=== PATIENT | female | born 1985 | race Two or more races ===

== ENCOUNTER 2018-12-17 11:17 | Outpatient (CLI) | payer OTHER ==
[2018-12-17 12:16] LABS: ADD MAN DIFF? NO
[2018-12-17 12:21] LABS: EOSINOPHILS % 0.5 % (0.0-7.0); HEMATOCRIT 28.3 % (37.0-47.0); HEMOGLOBIN 8.4 g/dl (12.0-16.0); LYMPHOCYTES # 1.4 10^3/ul (0.8-2.9); LYMPHOCYTES % 18.3 % (15.0-51.0); MEAN CORPUSCULAR HEMOGLOBIN 21.1 pg (29.0-33.0); MEAN CORPUSCULAR HGB CONC 29.7 g/dl (32.0-37.0); MEAN CORPUSCULAR VOLUME 70.9 fl (82.0-101.0); MEAN PLATELET VOLUME 11.6 fl (7.4-10.4); MONOCYTE # 0.4 10^3/ul (0.3-0.9); MONOCYTES % 5.6 % (0.0-11.0); NEUTROPHIL # 5.7 10^3/ul (1.6-7.5); NEUTROPHILS % 74.9 % (39.0-77.0); PLATELET COUNT 267 10^3/UL (140-415); RED BLOOD COUNT 3.99 10^6/ul (4.20-5.40); RED CELL DISTRIBUTION WIDTH 16.4 % (11.5-14.5)
[2018-12-17 12:21] LABS: WHITE BLOOD COUNT 7.6 10^3/ul (4.8-10.8)
[2018-12-17 13:11] LABS: ADD UMIC YES; UR ASCORBIC ACID NEGATIVE (NEGATIVE); UR BACTERIA FEW /HPF (NONE SEEN); UR BILIRUBIN (Dip) NEGATIVE (NEGATIVE); UR BLOOD (Dip) NEGATIVE (NEGATIVE); UR CLARITY CLOUDY (CLEAR); UR COLOR YELLOW (YELLOW); UR GLUCOSE (Dip) NEGATIVE (NEGATIVE); UR KETONES (Dip) NEGATIVE (NEGATIVE); UR LEUKOCYTE ESTERASE (Dip) TRACE Leu/ul (NEGATIVE); UR MUCUS FEW /HPF (NONE SEEN); UR NITRITE (Dip) NEGATIVE (NEGATIVE); UR RBC 5 /HPF (0-5); UR SQUAMOUS EPITHELIAL CELL MANY /HPF (FEW); UR TOTAL PROTEIN (Dip) NEGATIVE (NEGATIVE); UR UROBILINOGEN (Dip) NEGATIVE (NEGATIVE); UR WBC 11 /HPF (0-5)
== END 2018-12-17 14:44 | disposition home or self-care (01) ==
LOC: OBT 11:17 → L-D 11:24 → OBT 14:44
DX: O47.03 False labor before 37 completed weeks of gestation, third trimester (principal); O26.893 Other specified pregnancy related conditions, third trimester; R10.2 Pelvic and perineal pain; Z3A.36 36 weeks gestation of pregnancy
CPT/HCPCS: 76815; 76818; 81001; 85025

== ENCOUNTER 2019-01-11 00:56 | Inpatient (IN) | payer OTHER ==
[2019-01-11] MEDS ORDERED: METHYLERGONOVINE 0.2 MG INJ IM ×2 (02:00→23:00)
[2019-01-11] MEDS ORDERED: LIDOCAINE 1% (MPF) 30 ML INJ INJ (02:00)
[2019-01-11] MEDS ORDERED: MISOPROSTOL 200 MCG TAB PR ×2 (02:00→23:00)
[2019-01-11] MEDS ORDERED: CARBOPROST 250 MCG INJ IM ×2 (02:00→23:00)
[2019-01-11] MEDS ORDERED: OXYTOCIN 30 UNITS/LR 500 ML IV ×3 (02:00→23:00)
[2019-01-11] MEDS ORDERED: BUTORPHANOL 2 MG INJ IV ×2 (02:00)
[2019-01-11] MEDS: LACTATED RINGER'S 1,000 ML IV ×3 (04:12→12:31)
[2019-01-11 05:07] LABS: ABNORMAL IP MESSAGE 1; HEMATOCRIT 30.8 % (37.0-47.0); HEMOGLOBIN 9.1 g/dl (12.0-16.0); MEAN CORPUSCULAR HEMOGLOBIN 22.4 pg (29.0-33.0); MEAN CORPUSCULAR HGB CONC 29.5 g/dl (32.0-37.0); MEAN CORPUSCULAR VOLUME 75.7 fl (82.0-101.0); PLATELET COUNT 249 10^3/UL (140-415); RED BLOOD COUNT 4.07 10^6/ul (4.20-5.40); RED CELL DISTRIBUTION WIDTH 23.9 % (11.5-14.5)
[2019-01-11 05:07] LABS: WHITE BLOOD COUNT 8.4 10^3/ul (4.8-10.8)
[2019-01-11 05:25] LABS: ADD MAN DIFF? YES; POSITIVE DIFF @See below
[2019-01-11 05:32] LABS: INR 0.95; PROTIME 12.8 Sec (11.9-14.9)
[2019-01-11 05:33] LABS: PARTIAL THROMBOPLASTIN TIME 27.2 Sec (23.0-35.0)
[2019-01-11 07:33] LABS: HEPATITIS B SURFACE ANTIGEN NEGATIVE (NEGATIVE)
[2019-01-11] MEDS: OXYTOCIN 30 UNITS/LR 500 ML IV ×2 (09:12→18:42)
[2019-01-11 10:17] LABS: ANISOCYTOSIS 2+ (0-0); BAND NEUTROPHILS #M 0.1 10^3/ul (0.0-0.6); BAND NEUTROPHILS % (M) 2 % (0-4); LYMPHOCYTES #M 2.6 10^3/ul (0.8-2.9); LYMPHOCYTES % (M) 31 % (15-51); MICROCYTOSIS 2+ (0-0); MONOCYTE #M 0.4 10^3/ul (0.3-0.9); MONOCYTES % (M) 5 % (0-11); PLATELET ESTIMATE NORMAL; POLYCHROMASIA 1+ (0-0); REACTIVE LYMPHOCYTES% (M) 1 % (0-0); SEG NEUT #M 5.1 10^3/ul (1.6-7.5); SEGMENTED NEUTROPHILS (M) % 61 % (39-77); SMUDGE%M 11 % (0-0)
[2019-01-11] MEDS ORDERED: FENTAnyl 2MCG/ML-ROPIV 0.2% 100 ML (12:43)
[2019-01-11] MEDS ORDERED: NALOXONE (0.4 MG/ML) INJ IV (13:00)
[2019-01-11] MEDS ORDERED: ONDANSETRON 4 MG INJ IV ×2 (13:00→23:00)
[2019-01-11] MEDS ORDERED: FENTAnyl 2MCG/ML-ROPIV 0.2% 100 ML BAG EPI (13:00)
[2019-01-11] MEDS ORDERED: DIPHENHYDRAMINE 50 MG INJ IV (13:00)
[2019-01-11] MEDS ORDERED: TRIMETHOBENZAMIDE 100 MG/ML VIAL IM (13:00)
[2019-01-11 15:07] LABS: RAPID PLASMA REAGIN NONREACTIVE (NR)
[2019-01-11] MEDS: LACTATED RINGER'S 1,000 ML IV* (22:43)
[2019-01-11] MEDS ORDERED: ZOLPIDEM 5 MG TAB PO (23:00)
[2019-01-11] MEDS ORDERED: DIPHENHYDRAMINE 25 MG CAP PO (23:00)
[2019-01-11] MEDS ORDERED: NA PHOSPHATE/BIPHOS 133 ML ENEMA PR (23:00)
[2019-01-11] MEDS ORDERED: HYDROCODONE/APAP (5/325) TAB PO (23:00)
[2019-01-11] MEDS ORDERED: METHYLERGONOVINE 0.2 MG TAB PO (23:00)
[2019-01-11] MEDS ORDERED: MAGNESIUM HYDROXIDE 30ML CUP PO (23:00)
[2019-01-12] MEDS: OXYTOCIN 30 UNITS/LR 500 ML IV (00:08)
[2019-01-12] MEDS: LANOLIN HPA 1 PKT TOP (00:09)
[2019-01-12] MEDS: BENZOCAINE 20% 56 ML SPRAY TOP (00:09)
[2019-01-12] MEDS: WITCH HAZEL/GLYCERIN PAD PR (00:09)
[2019-01-12] MEDS: IBUPROFEN 600 MG TAB PO (00:10)
[2019-01-12] MEDS: LACTATED RINGER'S 1,000 ML IV* ×3 (06:43→22:43)
[2019-01-12] MEDS: IBUPROFEN 800 MG TAB PO ×2 (06:55→18:22)
[2019-01-12] MEDS: SENNA/DOCUSATE NA (8.6MG/50MG) TAB PO ×2 (09:00→21:38)
[2019-01-12 17:39] LABS: ADD MAN DIFF? NO
[2019-01-12 17:40] LABS: ABNORMAL IP MESSAGE 1; BASOPHILS % 0.2 % (0.0-2.0); EOSINOPHILS # 0.1 10^3/ul (0.0-0.5); EOSINOPHILS % 0.8 % (0.0-7.0); HEMATOCRIT 29.3 % (37.0-47.0); HEMOGLOBIN 8.7 g/dl (12.0-16.0); LYMPHOCYTES # 2.2 10^3/ul (0.8-2.9); LYMPHOCYTES % 25.9 % (15.0-51.0); MEAN CORPUSCULAR HEMOGLOBIN 22.7 pg (29.0-33.0); MEAN CORPUSCULAR HGB CONC 29.7 g/dl (32.0-37.0); MEAN CORPUSCULAR VOLUME 76.3 fl (82.0-101.0); MEAN PLATELET VOLUME 11.7 fl (7.4-10.4); MONOCYTE # 0.5 10^3/ul (0.3-0.9); MONOCYTES % 5.3 % (0.0-11.0); NEUTROPHIL # 5.8 10^3/ul (1.6-7.5); NEUTROPHILS % 67.3 % (39.0-77.0); PLATELET COUNT 223 10^3/UL (140-415); RED BLOOD COUNT 3.84 10^6/ul (4.20-5.40); RED CELL DISTRIBUTION WIDTH 25.2 % (11.5-14.5)
[2019-01-12 17:40] LABS: WHITE BLOOD COUNT 8.6 10^3/ul (4.8-10.8)
[2019-01-12 17:41] LABS: POSITIVE DIFF @See below
[2019-01-13] MEDS: HYDROCODONE/APAP (5/325) TAB PO (00:24)
[2019-01-13] MEDS: LACTATED RINGER'S 1,000 ML IV* (05:01)
[2019-01-13] MEDS: IBUPROFEN 800 MG TAB PO (05:50)
[2019-01-13] MEDS: MEASLES,MUMPS,RUBELLA VACCINE INJ SC* (09:00)
[2019-01-13] MEDS: DIPHTH/TET/ACEL PERTUSS (ADULT) 0.5 ML VIAL IM* (09:00)
[2019-01-13] MEDS: SENNA/DOCUSATE NA (8.6MG/50MG) TAB PO (09:00)
[2019-01-13] MEDS: VARICELLA VACCINE LIVE/PF 1,350 UNIT/0.5 ML ML SC* (09:00)
== END 2019-01-13 16:52 | disposition home or self-care (01) | DRG 807 ==
LOC: OBT 00:56 → L-D 00:56 → OBT 01:43 → L-D 01:43 → MS1 20:49
PROVIDERS: Obstetrics & Gynecology
PROC: 10E0XZZ Delivery of Products of Conception, External Approach (ICD-10-PCS; principal; 2019-01-11)
DX: O69.1XX0 Labor and delivery complicated by cord around neck, with compression, not applicable or unspecified (principal); Z37.0 Single live birth; Z3A.39 39 weeks gestation of pregnancy
CPT/HCPCS: 62322; 76815; 85025; 85610; 85730; 86592; 86850; 86900; 86901; 86920; 87340; 90715; 90716